=== PATIENT | male | born 1985 | race Caucasian/White ===

== ENCOUNTER 2020-07-13 06:23 | Emergency (ER) | payer OTHER, SELFPAY ==
[2020-07-13 06:24] VITALS: BP 165/96; PULSE 67; RESP 22; TEMP 36.2; O2SAT 100; BMI 26.4
--- NOTE | 2020-07-13 06:44 | CT_ITS ---
STUDY: CT ABDOMEN AND PELVIS WITHOUT CONTRAST REASON FOR EXAM: Male, 35 years old. flank pain RADIATION DOSAGE (If Supplied By Facility): CTDIvol = ( 6.27 ) mGy, DLP = ( 330.75 ) mGycm TECHNIQUE: Transaxial images were obtained from the dome of the diaphragm to the symphysis pubis without oral contrast, and without intravenous contrast. Sagittal and coronal images were reconstructed. Individualized dose optimization techniques were used for this CT. COMPARISON: None. FINDINGS: The visualized lung bases are unremarkable. The visualized portions of the heart are within normal limits. Normal liver. Normal gallbladder and extrahepatic biliary system. Normal spleen. Normal pancreas. Normal bilateral adrenal glands. 2 mm nonobstructing stone lower pole the right kidney. 3 mm obstructing stone at the left ureterovesical junction with the mild ureteral dilatation, hydronephrosis, and perinephric edema. Normal visualized stomach. Normal small intestine. Normal colon. The appendix is visualized and appears normal. Normal abdominal aorta. Normal inferior vena cava. Normal retroperitoneum. Normal urinary bladder. Normal abdominal wall. Normal osseous structures. CT/Abdomen/Pelvis without Cont IMPRESSION: 3 mm obstructing stone at the left ureterovesical junction with the mild ureteral dilatation, hydronephrosis, and perinephric edema. Electronically Signed: Armando Beebe MD at 7:44 EST Tel , Service support ,
--- NOTE | 2020-07-13 06:46 | US_ITS ---
STUDY: SCROTUM ULTRASOUND REASON FOR EXAM: Male, 35 years old. testicular pain TECHNIQUE: Ultrasound evaluation of the scrotum was performed with color Doppler and static kebede-scale imaging. COMPARISON: None. FINDINGS: RIGHT TESTICLE INTRATESTICULAR: There is a normal size of the right testicle. The right testicle measures 3.4 x 2.4 x 2.3 cm. There is a homogenous echotexture. There is normal arterial and normal venous vascularity. There is no demonstrated right testicular mass or cyst. EXTRATESTICULAR: The epididymis is normal in size. The epididymis head measures 1.1 x 1.4 x 1.5 cm. There is normal vascularity of the epididymis. There is a well-defined cystic structure within the epididymis, without internal echoes, consistent with an epididymal cyst. There is a small hydrocele. There is no demonstrated varicocele. There is no demonstrated extratesticular mass or cyst. LEFT TESTICLE INTRATESTICULAR: There is a normal size of the left testicle. The left testicle measures 5.7 x 3.7 x 3.7 cm. There is a homogenous echotexture. There is normal arterial and normal venous vascularity. There is no demonstrated left testicular mass or cyst. EXTRATESTICULAR: The epididymis is normal in size. The epididymis head measures 2.0 x 1.1 x 2.2 cm. There is normal vascularity of the epididymis. There is a well-defined cystic structure within the epididymis, without internal echoes, consistent with an epididymal cyst. There is no demonstrated hydrocele. There is no demonstrated varicocele. There is no demonstrated extratesticular mass or cyst. US/Testicular with Arterial Flow IMPRESSION: Normal bilateral testicles. Electronically Signed: Armando Beebe MD at 8:20 EST Tel , Service support ,
[2020-07-13 06:54] LABS: Absolute Lymphocyte Count 1.26 X10^3/uL (0.83-4.51); Absolute Neutrophil Count 11.2 X10^3/uL (2.0-7.7); Basophil# 0.03 X10^3/uL; Basophil% 0.2 % (0-1); Eosinophil# 0.01 X10^3/uL; Eosinophils% 0.1 % (0-5); Hematocrit 39.5 % (40-54); Hemoglobin 13.6 g/dL (13.0-16.5); Lymphocyte # 1.26 X10^3/ul (4.0); Lymphocyte % 9.2 % (19-41); Mean Corp Hgb Conc 34.4 g/dL (32-36); Mean Corpuscular Hgb 31.6 pg (27.0-32.0); Mean Corpuscular Volume 91.9 fL (80-94); Mean Platelet Vol. 11.2 fl (6.2-12.0); Monocyte# 1.18 X10^3/uL; Monocyte% 8.6 % (0-10); NRBC Flagged by Analyzer 0 % (0-5); Neutrophil # 11.15 X10^3/uL (2.7-7.7); Neutrophil % 81.5 % (47-70); Platelet Count 282 K/mm3 (150-450); RBC Distribution Width CV 11.9 % (11.6-14.6); RBC Distribution Width SD 38.9 fl (35.1-43.9); White Blood Count 13.7 K/mm3 (4.4-11.0)
[2020-07-13] MEDS: 0.9% Normal Saline 1,000 ML 1000 ML IV (06:55)
[2020-07-13] MEDS: Morphine 4 MG/ML Syringe IV ×2 (06:56→08:02)
[2020-07-13] MEDS: Ondansetron 4 MG/2 ML Vial IV (06:56)
[2020-07-13 07:04] LABS: Anion Gap 8 (5-15); BUN 6 mg/dL (7-18); BUN/Creat Ratio 5.6 RATIO (10-20); Chloride 91 mmol/L (98-107); Creatinine, Serum 1.07 mg/dL (0.70-1.30); EST Glomerular Filtration Rate 85 mL/min (>60); Est Glom Filt Rate - Afr Amer 102 mL/min (>60); Estimated Creatinine Clearance 88.61 ml/min; Glucose 125 mg/dL (74-106); Sodium Level 129 mmol/L (136-145)
--- NOTE | 2020-07-13 07:54 | ED.VISSUMM ---
- ER Visit Summary Date of Service: 07/13/20 Chief Complaint: Left flank pain History of Present Illness: The patient is a 35 M presenting with left flank pain. Patient was seen at [facility] ED on July 10, 2020. At that time he was told that he had kidney stones and was started on Flomax and [place]. He continues to have pain. He was advised to follow-up with urology but has not been able to see them yet. He denies difficulty emptying his bladder. He has had nausea and vomiting. He denies fever. Denies other complaints. Physical Examination: Vitals are stable. Patient is afebrile. Alert no acute distress. HEENT exam is unremarkable. Neck is supple. Lungs are clear and equal bilaterally. Heart is regular rate and rhythm. Abdomen is soft left lower quadrant tenderness with no guarding or rebound Back: Left CVA tenderness Extremities are unremarkable. Skin is warm and dry. Remainder of exam is unremarkable. Emergency Department Course and Treatment: Patient was given morphine, Zofran IV. CT flank was obtained and shows 3 mm obstructing stone at the left ureterovesical junction with the mild ureteral dilatation, hydronephrosis, and perinephric edema. CBC shows white count 13.7. Chemistries show potassium 3.0, sodium 129. Patient given IV fluids, Toradol, morphine, potassium replacement. He will be signed out to the oncoming physician for reevaluation. Disposition: Pending Impression: Urolithiasis This note was generated with [employer] dictation software. It may contain incorrect words, spelling, and punctuation that were not noted in review of the chart prior to signing ED Disposition - Plan for ED Patient: Referrals: NOT,DEFINED [Primary Care Provider] -
[2020-07-13 07:59] LABS: Bacteria 0 SEEN /hpf (None Seen); Mucous, Urine 0 SEEN /hpf (<or=2+); Red Blood Cells-Urine 0 SEEN /hpf (0-5); Squamous Epithelial Cells - UA 0 SEEN /hpf (0-5); White Blood Cells 0 SEEN /hpf (0-5)
[2020-07-13] MEDS: 0.9% Normal Saline 1,000 ML 999 ML IV (08:01)
[2020-07-13] MEDS: Potassium Chloride Oral Tablet 20 MEQ 40 MEQ PO (08:02)
[2020-07-13] MEDS: Ketorolac 15 MG/ML Vial IV (08:02)
[2020-07-13 08:06] LABS: Color, Urine Straw (Yellow); Glucose, Dipstick Normal (Normal); Ketone-Dipstick Negative (Negative); Leukocyte Esterase-Dipstick Negative /ul (Negative); Nitrite-Dipstick Negative (Negative); Occult Blood-Urine Negative /ul (Negative); Protein-Dipstick Negative (Negative); Specific Gravity, Urine 1.005 (1.002-1.030); Urine Bilirubin Dipstick Negative (Negative); Urine Clarity Clear (Clear); Urine Urobilinogen Normal (Normal)
[2020-07-13 08:11] VITALS: BP 132/86; PULSE 70; RESP 16; O2SAT 95
[2020-07-13] MEDS: oxyCODONE 5 MG Tablet PO (09:06)
== END 2020-07-13 09:18 | disposition home or self-care (01) ==
PROVIDERS: Emergency Medicine; Emergency Provider Student in an Organized Health Care Education/Training Program
DX: N13.2 Hydronephrosis with renal and ureteral calculous obstruction (principal); Z87.442 Personal history of urinary calculi
CPT/HCPCS: 74176; 76870; 80048; 81001; 85025; 93976; 96361; 96374; 96375; 96376; 99284; J7030; A4216; J2405

== ENCOUNTER → 2020-07-17 13:59 | Outpatient (CLI) | payer OTHER, SELFPAY ==
[2020-07-13 06:24] VITALS: BMI 26.4
== END ==
PROVIDERS: Visit Provider Nurse Practitioner Adult Health
DX: Z03.818 Encounter for observation for suspected exposure to other biological agents ruled out (principal)
CPT/HCPCS: 87635; C9803; U0002

== ENCOUNTER → 2020-07-23 14:26 | Outpatient (CLI) | payer OTHER, SELFPAY ==
[2020-07-13 06:24] VITALS: BMI 26.4
[2020-08-01 10:38] LABS: Source Not Provided
== END ==
PROVIDERS: Visit Provider Urology
DX: N20.1 Calculus of ureter (principal)
CPT/HCPCS: 82360

== ENCOUNTER → 2020-09-09 14:59 | Outpatient (CLI) | payer OTHER, SELFPAY ==
--- NOTE | 2020-09-09 15:03 | RAD_ITS ---
STUDY: X-RAY - ABDOMEN/PELVIS REASON FOR EXAM: Male, 35 years old. CALCULUS OF URETER TECHNIQUE: Single AP view of the abdomen / pelvis. COMPARISON: CT abdomen and pelvis July 13, 2020 FINDINGS: The lung bases are out of the [id number]. There is abundant stool within the colon especially the ascending colon. The kidneys are obscured on this study. The stone that was seen in the left pelvis on prior study is not seen on this study. The liver spleen and kidneys are obscured. Normal soft tissue structures. Normal visualized osseous structures. RAD/Abdomen Single View IMPRESSION: Limited study to evaluate for renal stones, there is abundant stool in the colon. The stone that was seen in the left side of the pelvis in the prior study is not seen. Electronically Signed: Renée Alvarado MD at 6:46 EDT Tel , Service support ,
== END ==
PROVIDERS: Referring Provider Urology; Visit Provider Urology
DX: N20.1 Calculus of ureter (principal)
CPT/HCPCS: 74018